=== PATIENT | female | born 1975 | race Caucasian/White ===

== ENCOUNTER → 2017-12-23 12:39 | Outpatient (CLI) | payer MEDICAID ==
[2014-01-12 06:22] VITALS: BMI 18.0
[2017-12-23 13:23] LABS: ALBUMIN 4.1 g/dL (3.4-5.0); ALKALINE PHOSPHATASE 38 U/L (46-116); ALT (SGPT) 28 U/L (10-68); BILIRUBIN - TOTAL 0.38 mg/dL (0.2-1.3); CALC OSMOLALITY 272 mosm/kg (275-300); CALCIUM 8.8 mg/dL (8.5-10.1); CARBON DIOXIDE 28.4 mmol/L (21.0-32.0); CHLORIDE - SERUM 102 mmol/L (98-107); CREATININE - SERUM 0.6 mg/dL (0.6-1.3); GLUCOSE 86 mg/dL (74-106); POTASSIUM - SERUM 4.3 mmol/L (3.5-5.1); PROTEIN - SERUM 7.4 g/dL (6.4-8.2); SODIUM 138 mmol/L (136-145); UREA NITROGEN 6 mg/dL (7-18); eGFR NON AFRICAN AMERICAN > 90 mL/min (90-120)
== END | disposition home or self-care (01) ==
LOC: D.LAB 12-22 11:45
PROVIDERS: Internal Medicine Gastroenterology
DX: R17 Unspecified jaundice (principal)

== ENCOUNTER → 2018-01-12 09:03 | Outpatient (CLI) | payer MEDICAID ==
[2014-01-12 06:22] VITALS: BMI 18.0
== END | disposition home or self-care (01) ==
LOC: D.US 09:00
DX: R17 Unspecified jaundice (principal); K59.00 Constipation, unspecified